=== PATIENT | female | born 1940 | race Caucasian/White ===

== ENCOUNTER 2016-06-20 09:24 | Emergency (ER) | payer MEDICARE ==
[2016-06-20 10:34] VITALS: BP 127/58
--- NOTE | 2016-06-20 10:49 | UC ---
Truncal Trauma HPI - HPI Summary HPI Summary: s/p fall on her right side, injury to her right lower anterior ribs, pain with movements, pain with deep inhalation . no fever, no cough , + mild sob. - History Of Current Complaint Chief Complaint: UCTrauma Stated Complaint: RIGHT SIDE PAIN Time Seen by Provider: 06/20/16 10:21 Hx Obtained From: Patient, Family/Gas Pipe Layer Onset/Duration: Sudden Onset, Lasting Days - 7, Still Present Severity Initially: Moderate Severity Currently: Moderate Mechanism Of Injury: Fall From A Standing Position Aggravating Factor(s): Movement, Deep Breathing, Cough Alleviating factor(s): Rest Associated Signs And Symptoms: Positive: SOB. Negative: Chest Pain, Cough, Hematuria, Abdominal Pain, Fever, Nausea, Vomiting - Allergies/Home Medications Allergies/Adverse Reactions: Allergies Allergy/AdvReac Type Severity Reaction Status Date / Time Adhesive Tape Allergy Blisters Verified 06/20/16 10:20 Aspirin Allergy Rash Verified 06/20/16 10:20 [From [employer]space Compound] Latex Allergy Rash Verified 06/20/16 10:20 Levofloxacin Allergy Unknown Verified 06/20/16 10:20 Reaction Details Oxycodone Allergy Unknown Verified 06/20/16 10:20 Reaction Details Pentazocine Allergy Unknown Verified 06/20/16 10:20 Reaction Details Home Medications: Home Medications Cholecalciferol TAB* [Vitamin D TAB*] 1,000 unit PO DAILY 06/20/16 [History Confirmed 06/20/16] Gabapentin CAP(*) [Neurontin 100 mg CAP(*)] 100 mg PO TID 06/20/16 [History Confirmed 06/20/16] Hydrocodone-Acetaminophen [Hydrocodone/Acetaminophen 5-325 mg] 1 tab PO Q4H PRN 06/20/16 [History Confirmed 06/20/16] Metformin HCl [Metformin HCl ER] 1,000 mg PO DAILY 06/20/16 [History Confirmed 06/20/16] Oxybutynin TAB* [Ditropan TAB*] 5 mg PO BID 06/20/16 [History Confirmed 06/20/16 ] Procera Avh 06/20/16 [History] Rosuvastatin Calcium [Crestor] 40 mg PO DAILY 06/20/16 [History Confirmed ] Spironolactone [Aldactone 50 MG-] 50 mg PO DAILY 06/20/16 [History Confirmed ] PMH/Surg Hx/FS Hx/Imm Hx Endocrine History Of: Reports: Diabetes Denies: Thyroid Disease Cardiovascular History Of: Reports: Cardiac Disorders - stroke 2007, Hypertension Denies: Pacemaker/ICD Respiratory History Of: Denies: Asthma GI/ History Of: Denies: Renal Disease Cancer History Of: Denies: Breast Cancer - Surgical History Surgical History: Yes Surgery Procedure, Year, and Place: appendix, RT leg ORIF , elbow ORIF, FX CLAVICLE, PER PT SHE HAD A BRAIN SX FOR A BLOOD CLOT, SHE CAN'T REMEMBER WHERE SHE HAD IT DONE AND THERE IS NO OP REPORT- HAD SKULL X-RAYS FOR MRI CLEARANCE IN Dec- CLEARED BY DR CHAMPAGNE- PER X-RAY REPORT NO ANEURISM CLIPS USED, MIKEL FILTER,LSP DISCECTOMY/LAMINECTOMY-PER DAUGHTER IN LAW MORGANNEHEMIAH STATES THERE IS A HEART STENT-WE HAVE NO INFORMATION OF THIS AND PT WAS PREVIOUSLY SCREENED AT [facility] ON 1.5-PER DR DANIELS WE CAN REPEAT LSP W/O ON 1.5 - Family History Known Family History: Positive: Hypertension - Social History Alcohol Use: None Substance Use Type: None Smoking Status (MU): Never Smoked Tobacco Review of Systems Constitutional: Negative Skin: Negative Eyes: Negative ENT: Negative Respiratory: Shortness Of Breath Cardiovascular: Negative All Other Systems Reviewed And Are Negative: Yes Physical Exam Triage Information Reviewed: Yes Appearance: Well-Appearing, Well-Nourished, Pain Distress Vital Signs: Initial Vital Signs Temp 97.6 F 06/20/16 10:20 Pulse 60 06/20/16 10:20 Resp 24 06/20/16 10:20 BP 127/58 06/20/16 10:20 Pulse Ox 98 06/20/16 10:20 Eye Exam: Normal Eyes: Positive: Conjunctiva Clear ENT: Positive: Normal ENT inspection, Hearing grossly normal, Pharynx normal Neck: Positive: Supple, Nontender, No Lymphadenopathy Respiratory: Positive: Chest non-tender, Lungs clear, Normal breath sounds, Other: - tenderness right ant. lower ribs Cardiovascular: Positive: RRR, No Murmur, Pulses Normal Abdominal Exam: Normal Abdomen Description: Positive: Nontender, No Organomegaly, Soft Musculoskeletal: Positive: Strength Intact, ROM Intact Truncal Trauma Course/Dx - Differential Dx/Diagnosis Provider Diagnoses: contusio ribs Discharge - Discharge Plan Condition: Stable Disposition: HOME Patient Education Materials: Rib Contusion (ED) Referrals: Robi Rodriguez MD [Primary Care Provider] - 7 Days Additional Instructions: NO FRACTURE SEEN ON THE XRAY CONT. WITH REST, TAKE TYLENOL NEEDED FOR PAIN FOLLOW UP WITH YOUR PCP IN ONE WEEK
--- NOTE | 2016-06-20 11:08 | RAD ---
INDICATION: Right rib injury COMPARISON: None TECHNIQUE: Multiple views of the ribs were obtained. Evaluation is limited due to osteopenia FINDINGS: Bones: There is no evidence of acute rib fracture. LUNGS: The lungs are clear. There is no pneumothorax. Pleural spaces: There is no evidence of hemothorax. Other: None IMPRESSION: OSTEOPENIA. NO DISPLACED RIGHT-SIDED RIB FRACTURES IDENTIFIED.
== END 2016-06-20 11:19 | disposition home or self-care (01) ==
LOC: UCCORT 09:24
DX: S30.1XXA Contusion of abdominal wall, initial encounter (principal); I10 Essential (primary) hypertension; E11.9 Type 2 diabetes mellitus without complications; Z86.73 Personal history of transient ischemic attack (TIA), and cerebral infarction without residual deficits; W19.XXXA Unspecified fall, initial encounter; Y92.9 Unspecified place or not applicable; Z88.1 Allergy status to other antibiotic agents; Z88.6 Allergy status to analgesic agent; Z88.5 Allergy status to narcotic agent
CPT/HCPCS: 99212; G0463

== ENCOUNTER 2016-06-24 11:32 | Emergency (ER) | payer MEDICARE ==
[2016-06-24 14:09] VITALS: BP 124/64
[2016-06-24] MEDS ORDERED: Albuterol 2.5 MG/3 ML NEB.SOL* (0.083%) INH ONE (14:46)
[2016-06-24] MEDS ORDERED: Ipratropium 0.5MG/2.5ML NEB* 0.5 MG/2.5 ML NEB.SOLN INH ONE (14:46)
--- NOTE | 2016-06-24 14:51 | UC ---
Respiratory Complaint HPI - HPI Summary HPI Summary: pt is accompanied by son. Pt co/o cough, chest congestion X 3 days. Pt is not very physically active and son is worried about pneumonia. - History of Current Complaint Chief Complaint: UCRespiratory Stated Complaint: UPPER RESPIRATORY Time Seen by Provider: 06/24/16 14:37 Hx Obtained From: Patient, Family/Logging Operations Inspector ?: No Onset/Duration: Gradual Onset, Lasting Days Timing: Constant Severity Initially: Mild Severity Currently: Mild Character: Cough: Nonproductive Aggravating Factors: Deep Breaths, Recumbent Position Associated Signs And Symptoms: Positive: URI, Nasal Congestion - Risk Factors Pulmonary Embolism Risk Factors: Negative Cardiac Risk Factors: Negative Pseudomonas Risk Factors: Negative Tuberculosis Risk Factors: Negative - Allergies/Home Medications Allergies/Adverse Reactions: Allergies Allergy/AdvReac Type Severity Reaction Status Date / Time Adhesive Tape Allergy Blisters Verified 06/24/16 14:00 Aspirin Allergy Rash Verified 06/24/16 14:00 [From Talwin Compound] Latex Allergy Rash Verified 06/24/16 14:00 Levofloxacin Allergy Unknown Verified 06/24/16 14:00 Reaction Details Oxycodone Allergy Unknown Verified 06/24/16 14:00 Reaction Details Pentazocine Allergy Unknown Verified 06/24/16 14:00 Reaction Details Home Medications: Home Medications GuaiFENesin DM* [Robitussin DM*] 10 ml PO Q6H PRN 06/24/16 [History Confirmed ] PMH/Surg Hx/FS Hx/Imm Hx Previously Healthy: No - see pmh Endocrine History Of: Reports: Diabetes Denies: Thyroid Disease Cardiovascular History Of: Reports: Cardiac Disorders - stroke 2007, Hypertension Denies: Pacemaker/ICD Respiratory History Of: Denies: Asthma GI/ History Of: Denies: Renal Disease Cancer History Of: Denies: Breast Cancer - Surgical History Surgical History: Yes Surgery Procedure, Year, and Place: appendix, RT leg ORIF , elbow ORIF, FX CLAVICLE, PER PT SHE HAD A BRAIN SX FOR A BLOOD CLOT, SHE CAN'T REMEMBER WHERE SHE HAD IT DONE AND THERE IS NO OP REPORT- HAD SKULL X-RAYS FOR MRI CLEARANCE IN Dec- CLEARED BY DR CHAMPAGNE- PER X-RAY REPORT NO ANEURISM CLIPS USED, MIKEL FILTER,LSP DISCECTOMY/LAMINECTOMY-PER DAUGHTER IN LAW EDDIENEHEMIAH STATES THERE IS A HEART STENT-WE HAVE NO INFORMATION OF THIS AND PT WAS PREVIOUSLY SCREENED AT [place] ON 1.5-PER DR DANIELS WE CAN REPEAT LSP W/O ON 1.5 - Family History Known Family History: Positive: Hypertension - Social History Alcohol Use: None Substance Use Type: None Smoking Status (MU): Never Smoked Tobacco - Immunization History Most Recent Influenza Vaccination: 2016 Review of Systems Constitutional: Chills, Fatigue Skin: Negative Eyes: Negative ENT: Other - nasal congestion Respiratory: Shortness Of Breath, Cough Cardiovascular: Negative Gastrointestinal: Negative Genitourinary: Negative Motor: Negative Neurovascular: Negative Musculoskeletal: Negative Neurological: Negative Psychological: Negative All Other Systems Reviewed And Are Negative: Yes Physical Exam Triage Information Reviewed: Yes Appearance: Ill-Appearing Vital Signs: Initial Vital Signs Temp 98.2 F 06/24/16 14:03 Pulse 71 06/24/16 14:03 Resp 20 06/24/16 14:03 BP 124/64 06/24/16 14:03 Pulse Ox 96 06/24/16 14:03 Vital Signs Reviewed: Yes ENT Exam: Normal ENT: Positive: Nasal congestion Neck exam: Normal Respiratory: Positive: Decreased breath sounds - bilateral bases Cardiovascular Exam: Normal Musculoskeletal Exam: Normal Neurological Exam: Normal Psychological Exam: Normal Skin Exam: Normal UC Diagnostic Evaluation - Laboratory O2 Sat by Pulse Oximetry: 96 Respiratory Course/Dx - Differential Dx/Diagnosis Differential Diagnosis/HQI/PQRI: Bronchitis, Influenza, Other - pneumonia Provider Diagnoses: bronchitis Discharge - Discharge Plan Condition: Stable Disposition: HOME Prescriptions: Albuterol HFA INHALER* [Ventolin HFA Inhaler*] 1 - 2 puff INH Q4H PRN #1 mdi PRN Reason: Sob/Wheezing Azithromycin TAB* [Zithromax TAB (Z-MAYNOR) 250 mg #6 tabs] 2 tab PO .TODAY, THEN 1 DAILY #1 maynor predniSONE TAB* [Deltasone TAB*] 30 mg PO DAILY #12 tab Patient Education Materials: Acute Bronchitis (ED) Referrals: Robi Rodriguez MD [Primary Care Provider] -
--- NOTE | 2016-06-24 15:49 | RAD ---
INDICATION: 1 month cough. Back pain. COMPARISON: June 20, 2016 chest radiograph and May 19, 2016 lumbar spine MRI. TECHNIQUE: Dual energy PA and routine lateral views of the chest were obtained. REPORT: Severe compression fracture at T11 is unchanged. No new thoracic compression fractures evident. Increased thoracic kyphosis. Diffuse mild prominence of the interstitial markings. No alveolar consolidation concerning for pneumonia, focal pulmonary lesion, pleural effusion, pneumothorax. The heart, pulmonary vasculature, and mediastinal contours are unremarkable. Gallbladder fossa level surgical clips. Stigmata of bilateral shoulder rotator cuff tendinopathy.. IMPRESSION: Mild prominence of the interstitial markings reflect chronic obstructive pulmonary disease. Correlate with clinical assessment. No acute cardiopulmonary process evident.
== END 2016-06-24 15:54 | disposition home or self-care (01) ==
LOC: UCCORT 11:32
DX: J20.9 Acute bronchitis, unspecified (principal); R09.81 Nasal congestion; E11.9 Type 2 diabetes mellitus without complications; I10 Essential (primary) hypertension; Z86.73 Personal history of transient ischemic attack (TIA), and cerebral infarction without residual deficits; Z88.5 Allergy status to narcotic agent; Z88.1 Allergy status to other antibiotic agents; Z88.6 Allergy status to analgesic agent; Z91.040 Latex allergy status
CPT/HCPCS: 71020; 99212; G0463; J7644

== ENCOUNTER 2017-05-25 12:53 | Emergency (ER) | payer MEDICARE ==
--- NOTE | 2017-05-25 14:24 | UC ---
Complaint Female HPI - HPI Summary HPI Summary: Burning with urination, Patient states "its been going on for a while". Family states frequent small voids--no fevers - History Of Current Complaint Chief Complaint: UCGU Stated Complaint: URINARY COMPLAINT Time Seen by Provider: 05/25/17 14:06 Hx Obtained From: Patient, Family/Engineering Coordinator ?: No Onset/Duration: Gradual Onset, Lasting Weeks - 2, Still Present, Worse Since - yesterday Severity Initially: Moderate Severity Currently: Moderate Character: Burning Aggravating Factor(s): Urination - Allergies/Home Medications Allergies/Adverse Reactions: Allergies Allergy/AdvReac Type Severity Reaction Status Date / Time Adhesive Tape Allergy Blisters Verified 05/25/17 15:17 Aspirin Allergy Rash Verified 05/25/17 15:17 [From Talwin Compound] Latex Allergy Rash Verified 05/25/17 15:17 Levofloxacin Allergy Unknown Verified 05/25/17 15:17 Reaction Details Oxycodone Allergy Unknown Verified 05/25/17 15:17 Reaction Details Pentazocine Allergy Unknown Verified 05/25/17 15:17 Reaction Details Home Medications: Home Medications Furosemide [Lasix] 80 mg PO DAILY 05/25/17 [History Confirmed 05/25/17] Memantine TAB* [Namenda TAB*] 10 mg PO DAILY 05/25/17 [History Confirmed ] Metoprolol Succinate [Toprol Xl] 50 mg PO DAILY 05/25/17 [History Confirmed 10/05] Mupirocin 2% OINT* [Bactroban 2 % Oint*] 1 applic TOPICAL BID 05/25/17 [History Confirmed 05/25/17] Ondansetron [Zofran 4 MG Odt] 4 mg PO QID PRN 05/25/17 [History Confirmed ] Silver Sulfadiazine 1%* [SILVadine 1%*] 1 applic TOPICAL BID 05/25/17 [History Confirmed 05/25/17] Sulfamethox/Trimethoprim SS* [Bactrim SS 400/80 TAB*] 1 tab PO DAILY 05/25/17 [ History Confirmed 05/25/17] PMH/Surg Hx/FS Hx/Imm Hx Previously Healthy: No Cardiovascular History: Hypertension GI/ History: Gastroesophageal Reflux Neurological History: Dementia Psychological History: Anxiety - Surgical History Surgical History: Yes Surgery Procedure, Year, and Place: appendix, RT leg ORIF , elbow ORIF, FX CLAVICLE, PER PT SHE HAD A BRAIN SX FOR A BLOOD CLOT, SHE CAN'T REMEMBER WHERE SHE HAD IT DONE AND THERE IS NO OP REPORT- HAD SKULL X-RAYS FOR MRI CLEARANCE IN Dec- CLEARED BY DR CHAMPAGNE- PER X-RAY REPORT NO ANEURISM CLIPS USED, MIKEL FILTER,LSP DISCECTOMY/LAMINECTOMY-PER DAUGHTER IN LAW ADDY STATES THERE IS A HEART STENT-WE HAVE NO INFORMATION OF THIS AND PT WAS PREVIOUSLY SCREENED AT [place] ON 1.5-PER DR DANIELS WE CAN REPEAT LSP W/O ON .5 - Family History Known Family History: Positive: Hypertension - Social History Occupation: Retired Lives: Alone Alcohol Use: None Substance Use Type: None Smoking Status (MU): Never Smoked Tobacco - Immunization History Most Recent Influenza Vaccination: 2015 Review of Systems Constitutional: Negative Skin: Negative Eyes: Negative ENT: Negative Respiratory: Negative Cardiovascular: Negative Gastrointestinal: Negative Genitourinary: Dysuria, Frequency, Urgency, Other - wears an attends brief all the time Motor: Negative Neurovascular: Negative Musculoskeletal: Negative Neurological: Negative Psychological: Negative Is Patient Immunocompromised?: No All Other Systems Reviewed And Are Negative: Yes Physical Exam Triage Information Reviewed: Yes Appearance: Well-Appearing, No Pain Distress, Obese Vital Signs Reviewed: Yes Eye Exam: Normal Eyes: Positive: Conjunctiva Clear ENT Exam: Normal ENT: Positive: Normal ENT inspection, Hearing grossly normal. Negative: Nasal congestion, Trismus, Muffled voice, Hoarse voice, Dental tenderness Dental Exam: Normal Neck exam: Normal Neck: Positive: Supple, Nontender Respiratory Exam: Normal Respiratory: Positive: Chest non-tender, No respiratory distress, No accessory muscle use Cardiovascular Exam: Normal Cardiovascular: Positive: RRR, No Murmur, Pulses Normal, Brisk Capillary Refill Abdominal Exam: Normal Abdomen Description: Positive: Nontender, No Organomegaly, Soft. Negative: CVA Tenderness (R), CVA Tenderness (L) Bowel Sounds: Positive: Present Musculoskeletal Exam: Normal Musculoskeletal: Positive: Strength Intact, ROM Intact, Edema @ - chronic bilateral Neurological Exam: Normal Neurological: Positive: Alert, Muscle Tone Normal Psychological Exam: Normal Skin Exam: Normal Skin: Positive: Other - erythema labia minora Diagnostics - Laboratory Diagnostic Studies Completed/Ordered: trace leukoesterace in urine Complaint Female Dx - Course Course Of Treatment: Macrobid, pyridium, monostat cream externally culture urine follow with pcp - Differential Dx/Diagnosis Provider Diagnoses: Vulvovaginal candidias, Dysuria Discharge - Discharge Plan Condition: Stable Disposition: HOME Patient Education Materials: Phenazopyridine (By mouth), Vulvovaginal Candidiasis (ED), Dysuria (ED) Referrals: Robi Rodriguez MD [Primary Care Provider] - 2 Weeks Additional Instructions: Please pickling solution maker some mono stat cream to use externally on labia to decrease external irritation
[2017-05-25 15:14] VITALS: BP 120/49
--- NOTE | 2017-05-28 07:08 | ED ---
Progress - Progress Note Progress Note: if patient not better can change to cipro 500 bid x 5 days Course/Dx - Course Course Of Treatment: Macrobid, pyridium, monostat cream externally culture urine follow with pcp
== END 2017-05-25 15:58 | disposition home or self-care (01) ==
LOC: UCCORT 12:53
DX: B37.3 Candidiasis of vulva and vagina (principal); R30.0 Dysuria; K21.9 Gastro-esophageal reflux disease without esophagitis; F03.90 Unspecified dementia, unspecified severity, without behavioral disturbance, psychotic disturbance, mood disturbance, and anxiety; F41.9 Anxiety disorder, unspecified
CPT/HCPCS: 81003; 87077; 87086; 87186; 99212; G0463